=== PATIENT | female | born 2000 | race Caucasian/White ===

== ENCOUNTER 2020-10-12 17:16 | Emergency (ER) | payer OTHER ==
[~2020-10-12] VITALS: Ht 188 cm; Wt 104.3 kg
[~2020-10-12 17:16] MED LIST: 12-HOUR CO30 MG/5 ML PO; ALBU90OI INH; ALBU90OI6 INH; AMOX500 PO; AMOX50SU PO; CODACE30 PO; CODGUAEL PO; GUAIFENESIN1200 MG PO; METHYLPHENIDATE54 MG; METPHE18ER PO; PENVK250SU PO; TYLENOL COLD; Vibramycin100 MG PO; [UNRECOGNIZED DRUG - OTHER]
[2020-10-12] MEDS ORDERED: HYDR1TAB94 PO (18:17)
[2020-10-12] MEDS ORDERED: CYCL10 PO (18:17)
[2020-10-12] MEDS ORDERED: IBUP800 PO (18:17)
[2020-10-12] MEDS ORDERED: ONDA4ODT MM (18:19)
== END 2020-10-12 18:27 | disposition home or self-care (01) ==
LOC: ER 17:16
DX: S63.602A Unspecified sprain of left thumb, initial encounter (principal); S20.219A Contusion of unspecified front wall of thorax, initial encounter; Z79.899 Other long term (current) drug therapy; V49.40XA Driver injured in collision with unspecified motor vehicles in traffic accident, initial encounter; Y92.410 Unspecified street and highway as the place of occurrence of the external cause
CPT/HCPCS: 29125; 71046; 73110; 99284-25; A9270

== ENCOUNTER → 2020-10-20 | Outpatient (CLI) | payer OTHER ==
[~2020-10-20] MED LIST changes: +CYCL10 PO; +HYDR1TAB94 PO; +IBUP800 PO; +ONDA4ODT MM
== END ==
LOC: LAB 18:31 → LAB SHORT 18:31
DX: R30.9 Painful micturition, unspecified (principal)
CPT/HCPCS: 87086

== ENCOUNTER → 2022-01-08 | Outpatient (CLI) | payer OTHER | END | disposition home or self-care (01) | LOC: LAB SHORT 10:52 → PLD 10:52 | DX: D22.5 Melanocytic nevi of trunk (principal); D22.71 Melanocytic nevi of right lower limb, including hip | CPT/HCPCS: 88305 ==

== ENCOUNTER → 2022-10-31 | Outpatient (CLI) | payer OTHER | END | disposition home or self-care (01) | LOC: LAB 09:50 → LAB SHORT 09:50 | PROVIDERS: Registered Nurse Community Health | DX: Z12.4 Encounter for screening for malignant neoplasm of cervix (principal) | CPT/HCPCS: G0145 ==

== ENCOUNTER → 2023-02-12 | Outpatient (CLI) | payer OTHER | END | disposition home or self-care (01) | LOC: LAB SHORT 11:14 → PLD 11:14 | DX: D22.5 Melanocytic nevi of trunk (principal) | CPT/HCPCS: 88305 ==